=== PATIENT | male | born 1985 | race Caucasian/White ===

== ENCOUNTER 2024-10-22 16:58 | Emergency (ER) | payer OTHER, SELFPAY ==
--- NOTE | ~2024-10-22 | XR_ITS ---
EXAMINATION: XR chest 2V DATE: 10/22/2024 18:27 INDICATION: Chest pain. TECHNIQUE: Frontal and lateral views of the chest were obtained. COMPARISON: Chest 2 views 11/09/2016 FINDINGS: There is no pneumonia, pleural effusion, or pneumothorax. The heart size is normal. IMPRESSION: 1. No acute cardiopulmonary disease. Reviewed, dictated and finalized at location A. RWORKS OPERATOR
--- NOTE | 2024-10-22 17:03 | ECG_ITS ---
Test Date: 2024-10-22 17:14:22 Measurements Intervals [place] Rate: 78 P: 27 MS: 148 QRS: 18 QRSD: 116 T: 45 QT: 379 QTc: 432 Interpretive Statements SINUS RHYTHM INDETERMINATE AXIS MODERATE INTRAVENTRICULAR CONDUCTION DELAY [110+ ms QRS DURATION] No previous ECG available for comparison Electronically Signed On 10-22-2024 21:23:02 [employer] by Yolette Aldrich M.D.
[2024-10-22 17:37] VITALS: BP 160/95; PULSE 69; RESP 18; TEMP 36.8; O2SAT 99
[2024-10-22 18:22] VITALS: BP 166/109; PULSE 74; RESP 16; O2SAT 100
--- NOTE | 2024-10-22 18:25 | ED_ITS ---
HPI - General Adult General Chief complaint: Upper Respiratory Infection Stated complaint: COUGH,URI,ELEVATED BP NOT ON MEDS Time Seen by Provider: 10/22/24 18:19 History of Present Illness HPI narrative: Patient is a 39-year-old male who presents ER with multiple issues. He has been having runny nose or sore throat and cough over last few days. When he coughs he gets spots in his vision. He has developed some mild chest tightness and left-sided numbness in his arm. The chest discomfort was a 3:00 p.m.. No history of cardiac disease. Reports his children have been sick recently as well. Related Data Allergies Allergy/AdvReac Type Severity Reaction Status Date / Time No Known Allergies Allergy Verified 10/22/24 17:00 Review of Systems 2 Review of Systems: All systems reviewed & are unremarkable except as noted in HPI and below Constitutional: Constitutional: Denies chills, Denies fatigue and Denies fever(s) ENT: Reports vertigo, Reports nasal congestion and Reports sore throat Cardiovascular: Cardiovascular: Reports no additional cardiovascular complaints Respiratory: Respiratory: Reports no additional respiratory complaints PMFSH Past Medical History Medical History (Updated 10/22/24 @ 21:07 by Reji Hodge MD) Healthy adult male Surgical History Surgical History (Updated 10/22/24 @ 19:24 by Reji Hodge MD) No history of previous surgery Exam 2 Narrative: GENERAL: Well-appearing, well-nourished, and in no acute distress. HEAD: Normocephalic, atraumatic. ENT: Mucous membranes moist. TMs normal bilaterally. NECK: Supple. CHEST: Clear to auscultation. No respiratory distress. HEART: Regular rate and rhythm. Normal peripheral pulses. ABDOMEN: Soft, nontender, nondistended. EXTREMITIES: Normal range of motion. No edema. SKIN: Warm, dry, no rash. NEURO: Alert and oriented x3. PSYCH: Normal mood and affect. Course Course Emergency Course: Patient resting comfortably. Troponin negative. COVID negative as is flu and RSV. Appropriate for discharge home. Vital Signs Vital signs: Vital Signs Temperature 98.2 F 10/22/24 17:37 Pulse Rate 69 10/22/24 17:37 Respiratory Rate 18 10/22/24 17:37 Blood Pressure 160/95 H 10/22/24 17:37 Pulse Oximetry 99 10/22/24 17:37 Oxygen Delivery Room Air 10/22/24 17:37 Temperature 98.2 F 10/22/24 17:37 Pulse Rate 74 10/22/24 18:22 Respiratory Rate 16 10/22/24 18:22 Blood Pressure 166/109 H 10/22/24 18:22 Pulse Oximetry 100 10/22/24 18:22 Oxygen Delivery Room Air 10/22/24 17:37 Medical Decision Making Vital Signs Vital Signs: Vital Signs Temperature 98.2 F 10/22/24 17:37 Pulse Rate 69 10/22/24 17:37 Respiratory Rate 18 10/22/24 17:37 Blood Pressure 160/95 H 10/22/24 17:37 Pulse Oximetry 99 10/22/24 17:37 Oxygen Delivery Room Air 10/22/24 17:37 Temperature 98.2 F 10/22/24 17:37 Pulse Rate 74 10/22/24 18:22 Respiratory Rate 16 10/22/24 18:22 Blood Pressure 166/109 H 10/22/24 18:22 Pulse Oximetry 100 10/22/24 18:22 Oxygen Delivery Room Air 10/22/24 17:37 Lab Data 10/22/24 18:39 10/22/24 18:39 Labs: Lab Results 10/22/24 10/22/24 Range/Units 17:08 18:39 WBC 9.5 (4.5-10.0) K/mm3 RBC 5.37 (4.6-6.20) M/mm3 Hgb 16.1 (14.0-18.0) g/dL Hct 46.5 (42.0-52.0) % MCV 86.6 (80-100) fl MCH 30.0 (26-34) pg MCHC 34.6 (32-36) g/dl RDW 12.1 (11.5-14.5) % Plt Count 237 (150-375) k/mm3 MPV 8.8 (7.4-10.4) fl Immature Gran % (Auto) 0.5 (0-0.5) % Neut % (Auto) 59.5 (45.5-73.1) % Lymph % (Auto) 29.5 (18.3-44.2) % [place] % (Auto) 8.4 (2.6-8.5) % Eos % (Auto) 1.5 (0-4.4) % Baso % (Auto) 0.6 (0.2-1.2) % Lymph # (Auto) 2.80 (0.9-3.2) K/mm3 [place] # (Auto) 0.8 H (0.1-0.6) K/mm3 Eos # (Auto) 0.1 (0-0.3) K/mm3 Baso # (Auto) 0.1 (0.0-0.1) K/mm3 Abs Immat Gran (auto) 0.05 H (0.00-0.031) K/mm3 Absolute Neuts (auto) 5.7 (1.3-6.7) K/mm3 Absolute Nucleated RBC 0.000 (0.0-0.012) K/mm3 Nucleated RBC % 0.0 (0.0-0.2) % PT 13.1 (11.1-14.7) Seconds INR 0.9 APTT 28.6 (22.3-36.8) Seconds Sodium 140 (137-145) mmol/L Potassium 4.2 (3.4-5.0) mmol/L Chloride 105 (98-107) mmol/L Carbon Dioxide 30 (22-30) mmol/L Anion Gap 5 (4-12) mmol/L BUN 13 (9-20) mg/dL Creatinine 1.00 (0.7-1.3) mg/dL Estim Creat Clear Calc 94 ml/min Estimated GFR > 60 (59 - ) Glucose 98 (65-110) mg/dL Calcium 9.5 (8.4-10.2) mg/dL Total Bilirubin 0.6 (0.2-1.3) mg/dL AST 42 (17-59) U/L ALT 47 (6-50) U/L Alkaline Phosphatase 69 (38-126) U/L Troponin I < 0.012 (0.000-0.034) ng/mL Total Protein 8.0 (6.3-8.2) g/dL Albumin 4.7 (3.5-5.1) g/dL Influenza A (RT-PCR) Negative (Negative) Influenza B (RT-PCR) Negative (Negative) RSV (RT-PCR) Negative (Negative) SARS-CoV-2 RNA (RT-PCR) Negative (Negative) Imaging Data Radiologist's impression: ITS Impressions Chest X-Ray 10/22/24 18:34 IMPRESSION: 1. No acute cardiopulmonary disease. ECG Data EKG #1: ECG completion date: 10/22/24 ECG completion time: 17:14 EKG Interpretation: normal rate (78), sinus rhythm, normal QRS, normal QT and NL axis Discharge Plan Discharge Clinical Impression: Upper respiratory infection, Chest wall pain Patient Disposition: Home, Self-Care Condition: Stable Instructions: Antibiotic Form, Viral Syndrome (ED) Additional Instructions: As discussed you have a viral illness. Unfortunately there are no specific medications we can give you to make the illness end faster. Antibiotics do not work for viral illnesses. However, you can take Acetaminophen or Ibuprofen to help with fevers and pain. Stay well hydrated and rested. Return to the emergency department if your fevers and chills continue to worse after 5 days, if you develop worsening cough with thick sputum, or are unable to stay hydrated. Contact your primary care provider in the next few days for a re-evaluation and to make sure your symptoms are improving. Patient Language: Persian Prescriptions: New naproxen 375 mg tablet 375 mg PO BID Qty: 14 0RF Follow-up/Referrals: Wayne,CYNTHIA Cavlillo [Primary Care Provider] - 1 Week Quality HEART score for chest pain patients History: slightly suspicious ECG: normal Age: < or = to 45 years Risk factors: 1 or 2 risk factors Troponin: < or = to 1x normal limit Heart score: 1
[2024-10-22 18:46] LABS: Basophils Absolute Auto 0.1 K/mm3 (0.0-0.1); Basophils Percent Auto 0.6 % (0.2-1.2); Eosinophils Absolute Auto 0.1 K/mm3 (0-0.3); Eosinophils Percent Auto 1.5 % (0-4.4); Hematocrit 46.5 % (42.0-52.0); Hemoglobin 16.1 g/dL (14.0-18.0); Immature Granulocyte Absolute 0.05 K/mm3 (0.00-0.031); Immature Granulocyte Percent A 0.5 % (0-0.5); Lymphocytes Percent Auto 29.5 % (18.3-44.2); Mean Corpuscular HGB Conc 34.6 g/dl (32-36); Mean Corpuscular Volume 86.6 fl (80-100); Mean Platelet Volume 8.8 fl (7.4-10.4); Monocytes Absolute Auto 0.8 K/mm3 (0.1-0.6); Monocytes Percent Auto 8.4 % (2.6-8.5); Neutrophils Absolute Auto 5.7 K/mm3 (1.3-6.7); Neutrophils Percent Auto 59.5 % (45.5-73.1); Platelet Count Result 237 k/mm3 (150-375); Red Blood Count 5.37 M/mm3 (4.6-6.20); Red Cell Distribution Width 12.1 % (11.5-14.5); White Blood Count 9.5 K/mm3 (4.5-10.0)
[2024-10-22 18:57] LABS: Alanine Aminotransferase 47 U/L (6-50); Albumin Level 4.7 g/dL (3.5-5.1); Alkaline Phosphatase 69 U/L (38-126); Anion Gap 5 mmol/L (4-12); Aspartate Amino Transferase 42 U/L (17-59); Bilirubin,Total 0.6 mg/dL (0.2-1.3); Blood Urea Nitrogen 13 mg/dL (9-20); Calcium 9.5 mg/dL (8.4-10.2); Carbon Dioxide 30 mmol/L (22-30); Chloride 105 mmol/L (98-107); Estimated CRCL calculation 94 ml/min; Estimated Glomerular Filt Rate > 60; Glucose 98 mg/dL (65-110); Potassium 4.2 mmol/L (3.4-5.0); Sodium 140 mmol/L (137-145)
[2024-10-22 19:02] LABS: INR 0.9; Prothrombin Time 13.1 Seconds (11.1-14.7)
[2024-10-22 19:03] LABS: Partial Thromboplastin Time 28.6 Seconds (22.3-36.8)
[2024-10-22 19:08] LABS: Troponin I < 0.012 ng/mL (0.000-0.034)
[2024-10-22 19:16] LABS: Influenza A QL RT-PCR Negative (Negative); Influenza B QL RT-PCR Negative (Negative); RSV RNA, RT-PCR Negative (Negative); SARS-CoV-2 RNA PCR Negative (Negative)
[2024-10-22 21:28] VITALS: BP 152/101; PULSE 71; RESP 19; O2SAT 98
[2024-10-22 21:53] LABS: Troponin I < 0.012 ng/mL (0.000-0.034)
== END 2024-10-22 21:35 | disposition home or self-care (01) ==
PROVIDERS: Emergency Provider Emergency Medicine; PCP Nurse Practitioner
DX: J06.9 Acute upper respiratory infection, unspecified (principal); R07.89 Other chest pain; Z20.822 Contact with and (suspected) exposure to COVID-19; I45.9 Conduction disorder, unspecified
CPT/HCPCS: 36415; 71046; 80053; 84484; 85025; 85610; 85730; 87637; 93005; 99284

== ENCOUNTER 2025-06-02 08:39 | Emergency (ER) | payer OTHER, SELFPAY ==
--- NOTE | ~2025-06-02 | XR_ITS ---
HISTORY: pain posterior x1 week COMPARISON: None TECHNIQUE: 2 views of the right shoulder were performed FINDINGS: No acute fracture. The glenohumeral and acromioclavicular joint space is maintained The visualized portion of the adjacent right lung is clear. The humeral head is well seated within the glenoid fossa. IMPRESSION: No acute fracture or anterior dislocation. Reviewed, dictated and finalized at location A.
--- NOTE | 2025-06-02 08:41 | ED.UPPEXIN ---
HPI - Extremity Injury (Upper) General Chief Complaint: Extremity Injury, Upper Stated Complaint: right shoulder pain Time Seen by Provider: 06/02/25 08:46 Source: patient, RN notes reviewed and old records reviewed Mode of arrival: ambulatory Limitations: no limitations History of Present Illness HPI narrative: 40-year-old male presents to the [facility] with right shoulder pain. No trauma. 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 Patient states it has been going on for about a week. No erythema, ecchymosis, no rashes. Pain is worse with movement, raising. Has an occasional numbness in fingers. No midline tenderness. No neck pain. No treatment prior to arrival Related Data Allergies Allergy/AdvReac Type Severity Reaction Status Date / Time No Known Allergies Allergy Verified 06/02/25 08:42 Review of Systems Review of Systems: All systems reviewed & are unremarkable except as noted in HPI and below Constitutional: Constitutional: Reports no additional constitutional complaints Musculoskeletal: Musculoskeletal: Reports as per HPI, Reports arthralgias, Denies joint swelling, Reports limited range of motion and Denies muscle cramps Integumentary/Breasts: Skin/Breast: Reports system reviewed and no additional complaints, except as docu PMFSH Past Medical History Medical History Healthy adult male Surgical History Surgical History No history of previous surgery Comments At the time of my signature, I reviewed and agree with the nursing past medical, surgical, social, and family history. There is no relevant family history pertinent to the patient complaint. Exam Const: General: cooperative, healthy appearing, comfortable, no acute distress, well developed, alert and well nourished Nutritional Appearance: well nourished Orientation/consciousness: patient oriented x3 Limitations: no limitations HENMT: Head: normal to inspection Mouth: Yes Normal oral and palatal mucosa present, Yes lip normal, Yes tongue normal and Yes moist mucous membranes Eyes: General: appearance normal, both eyes and all related structures Alignment and Position: alignment normal Neck: Neck: normal visual inspection, full ROM, no lymphadenopathy, no meningeal signs and nontender Chest: Chest palpation & inspection: normal inspection of the chest Resp: Effort & Inspection: normal respiratory effort and able to speak in complete sentences Auscultation: clear to auscultation bilaterally, no crackles, no rales, no rhonchi and no wheezes Cardio: Rate: regular rate Back/Spine/Pelvis: Back: No erythema Cervical Spine: normal cervical lordosis, cervical ROM normal, No cervical muscular tenderness and No Cervical spine tenderness Thoracic/Lumbar Spine: No thoracic spinal tenderness and No lumbar spinal tenderness Skin: General skin exam: normal color and no rashes or lesions noted Neuro: General: patient oriented x3, gait normal, moves all extremities and no meningeal signs Cognition (Neuro): normal cognition Speech: normal speech Gait exam (Neuro): Normal gait present Extrem: General: normal to inspection, full ROM, capillary refill normal and normal gait Right upper extremity: shoulder/upper arm tenderness other (Posterior) and abnormal ROM pain with active ROM and pain with passive ROM; no swelling, elbow/forearm normal to inspection and normal ROM and wrist normal to inspection, normal ROM and normal vascular exam Psych: Appearance: grossly normal and well kempt Mental Status: mental status grossly normal Speech and movement: Normal speech and movement present and Clear speech present Affect: normal affect Attitude: cooperative Course Course Level of Care: Express Care Visit Vital Signs Vital signs: Vital Signs Temperature 97.7 F 06/02/25 08:46 Pulse Rate 69 06/02/25 08:46 Respiratory Rate 20 06/02/25 08:46 Blood Pressure 152/93 H 06/02/25 08:46 Pulse Oximetry 98 06/02/25 08:46 Oxygen Delivery Room Air 06/02/25 08:46 Temperature 97.7 F 06/02/25 08:46 Pulse Rate 69 06/02/25 08:46 Respiratory Rate 20 06/02/25 08:46 Blood Pressure 152/93 H 06/02/25 08:46 Pulse Oximetry 98 06/02/25 08:46 Oxygen Delivery Room Air 06/02/25 08:46 Reviewed MDM - Extremity Injury (Upper) MDM Narrative Medical decision making narrative: Patient sitting in exam room, patient is nontoxic, vitals are stable except blood pressure mildly elevated. Discussed the importance of following up with primary care provider for evaluation Patient denies any injury X-ray negative, discussed importance follow-up. Patient appropriate for outpatient treatment with close follow-up Discharge instructions reviewed with patient, as well as provided in writing per nursing staff. The instructions also include specific and strict return/GO TO THE ER as well as f/u information. All questions have been answered, and the patient deny any further questions with discharge and discharge plan. Some parts of this dictation were generated by voice recognition software and may contain typographical and/or grammatical inaccuracies. Differential Diagnosis Differential diagnosis: Likely other (Fracture, dislocation, strain, osteoarthritis, rotator cuff injury) Imaging Data Radiologist's impression: HISTORY: pain posterior x1 week COMPARISON: None TECHNIQUE: 2 views of the right shoulder were performed FINDINGS: No acute fracture. The glenohumeral and acromioclavicular joint space is maintained The visualized portion of the adjacent right lung is clear. The humeral head is well seated within the glenoid fossa. IMPRESSION: No acute fracture or anterior dislocation. Critical Care Time Critical Care Time Critical Care Time: No Discharge Plan Discharge Clinical Impression: Acute shoulder pain Qualifiers: Laterality: right Qualified Code(s): M25.511 - Pain in right shoulder Patient Disposition: Home Condition: Stable Instructions: Rotator Cuff Injury (ED), Shoulder Pain (ED) Additional Instructions: Your Xray did not show a fracture. Ice or heat should be applied to help with the discomfort. Ice will help reduce inflammation/ swelling. It can be used for 20 to 30 minutes, every 2-3 hours while awake. Do not apply ice directly to your skin. You can alternate ibuprofen 600mg and Tylenol 650mg every 4 hours as needed for pain Please schedule a follow-up visit with your personal physician for further evaluation and treatment within 2 weeks especially if symptoms persist. Today your blood pressure was 152/93. It is recommended you follow-up with primary care provider to have this rechecked. For new or worsening symptoms go directly to the emergency room Patient Language: Latvian Follow-up/Referrals: Wayne,CYNTHIA Calvillo [Primary Care Provider] - 1 Week (express care follow up ) Stand Alone Forms: Work/School Release IP Time of Disposition: 09:05
[2025-06-02 08:46] VITALS: BP 152/93; PULSE 69; RESP 20; TEMP 36.5; O2SAT 98
== END 2025-06-02 09:09 | disposition home or self-care (01) ==
PROVIDERS: Emergency Provider Nurse Practitioner; PCP Nurse Practitioner
DX: M25.511 Pain in right shoulder (principal)
CPT/HCPCS: 73030; 99213; G0463